=== PATIENT | male | born 1970 | race Two or more races ===

== ENCOUNTER 2017-11-19 11:12 | Outpatient (CLI) | payer OTHER | END 2017-11-19 11:13 | disposition home or self-care (01) | LOC: SC 11:12 | PROVIDERS: ATTEND Internal Medicine Pulmonary Disease | DX: G47.8 Other sleep disorders (principal); G47.00 Insomnia, unspecified | CPT/HCPCS: 99203; 99212 ==

== ENCOUNTER 2018-01-16 22:11 | Outpatient (CLI) | END 2018-01-16 22:12 | disposition home or self-care (01) ==

== ENCOUNTER 2018-02-24 14:07 | Outpatient (CLI) | payer OTHER | END 2018-02-24 14:08 | disposition home or self-care (01) | LOC: SC 14:07 | PROVIDERS: ATTEND Nurse Practitioner Family | DX: G47.61 Periodic limb movement disorder (principal); R06.83 Snoring | CPT/HCPCS: 99212; 99214 ==